=== PATIENT | female | born 1960 | race Caucasian/White ===

== ENCOUNTER 2016-12-26 22:35 | Emergency (ER) | payer OTHER ==
[~2016-12-26] VITALS: Ht 170.2 cm; Wt 78.0 kg
[2016-12-26 22:35] VITALS: Ht 170.2 cm; Wt 78.0 kg
[~2016-12-26 22:35] MED LIST: ALPR2TAB2; AMPH30TA3 PO; CLIN-89 PO
--- OUTSIDE RECORDS SUMMARY | 2016-12-26 22:39 | XMS REPORT | Continuity of Care Document ---
Author Author [facility] Organization [facility] Address Unknown Phone Unavailable Allergies Active Description Code Type Severity Reaction Onset Reported/Identified Relationship to Patient Clinical Status Yes No Known Allergies No Known Allergies Drug Allergy Unknown N/A 08/12/2014 Medications Problems Procedures Results Encounters ACCT No. Visit Date/Time Discharge Status Pt. Type Provider Facility Loc./Unit Complaint [id number] 08/12/2014 03:23:00 2013 04:41:00 DIS Emergency Lissy JONES, Juliocesar Vang [facility].EDS
--- OUTSIDE RECORDS SUMMARY | 2016-12-26 22:39 | XMS REPORT | Continuity of Care Document ---
Author Author [facility] Organization [facility] Address Unknown Phone Unavailable Support Name Relationship Address Phone DECEMBER, IKER Quinn DO Caregiver [address] [place] [address] [place] [address] Unavailable RIDDHI WILSON Next Of Kin [address] [place] [address] Insurance Providers Guarantor Tiffanie Hidalgo Address [address] [place] [address] Email [email or web address] Payer Self Pay Subscriber's Name Tiffanie Hidalgo Alex Relationship 18 Self Advance Directives Directive Response Recorded Date/Time Advanced Directives Type None 06/20/16 3:55am Chief Complaint and Reason for Visit Chief Complaint Skin Rash/Abscess Reason for Visit Carbuncle of left axilla Problems Active Problems Medical Problem Onset Date Status Fracture of lumbar spine Unknown Acute Fracture of lumbar spine Unknown Acute Past Problems Medical Problem Onset Date Carbuncle of left axilla Unknown Medications Current Home Medications Medication Dose Units Route Directions Days Qty Instructions Start Date Alprazolam (Xanax) 2 Mg Tablet Unknown Dose As Needed Clindamycin Hcl 150 Mg Capsule 1 Cap Oral Three Times A Day 10 Days 30 Capsule TAKE WITH A FULL GLASS OF WATER TO AVOID ESOPHAGEAL IRRITATION. Dextroamphetamine/Amphetamine (Adderall 30 Mg Tablet) 30 Mg Tablet 1 Tab Oral Daily 06/20/16 Social History Social History Problem Response Recorded Date/Time Onset Date Status Hx Substance Use No 06/20/2016 4:00am Not Applicable Not Applicable Hx Alcohol Use No 06/20/2016 4:00am Not Applicable Not Applicable Query Response Start Date Stop Date Smoking Status Current every day smoker Hospital Discharge Instructions No hospital discharge instructions. Plan of Care Discharge Date 06/20/16 4:30am Disposition 01 DISCHARGED HOME, SELF-CARE Condition at Discharge Stable Instructions/Education Provided Boil Prescriptions See Medication Section Referrals Your Physician Note: Care Plan and Goals Physician Care Plan Problem: Carbuncle Goal: Follow up with primary care provider Instructions: Take medications and follow care plan as discussed/written Functional Status No functional status results. Allergies, Adverse Reactions, Alerts Allergen Type Severity Reaction Status Last Updated No Known Drug Allergies Allergy Unknown Active 10/10/08 Immunizations Query Response on File Recorded Date/Time Hx Influenza Vaccination No 12/07/14 12:30pm Hx Tetanus, Diptheria, Pertussis UNKNOWN BY PT 12/07/14 12:30pm Hx Influenza Vaccination No 12/07/14 12:30pm Hx Tetanus, Diptheria, Pertussis UNKNOWN BY PT 12/07/14 12:30pm Vital Signs Acute Vital Signs Vital Response Date/Time Temperature (Fahrenheit) 98.2 deg F (96.8 - 99.1) 06/20/2016 4:30am Temperature (Calculated Celsius) 36.23738 degrees C (36.0 - 37.3) 06/20/2016 4:30am Pulse Rate (adult) 91 bpm (60 - 100) 06/20/2016 4:30am Respiratory Rate 16 breaths/min (10 - 20) 06/20/2016 4:30am O2 Sat by Pulse Oximetry 99 % (90 - 100) 06/20/2016 4:30am Blood Pressure 151/85 mm Hg 06/20/2016 4:30am Height (Feet) 5 feet 06/20/2016 3:55am Height (Inches) 9.00 inches 06/20/2016 3:55am Weight (Kilograms) 76.000 kg 06/20/2016 3:55am Body Mass Index (BMI) 24.0 06/20/2016 3:55am Results No known relevant diagnostic tests, laboratory data and/or discharge summary. Procedures No known history of procedures. Encounters Encounter Location Arrival/Admit Date Discharge/Depart Date Attending Provider Departed Emergency Room [facility] 06/20/16 3:40am 06/20/16 4: 30am IKER LOPEZ DO Recent Diagnosis
--- NOTE | 2016-12-26 22:54 | ERPDOC ---
Departure Disposition Decision Date: December 27, 2016 Disposition Decision Time: 00:43 Disposition: 01 DISCHARGED HOME, SELF-CARE Impression Impression Impression: Primary Impression: Anxiety Severity: Moderate Condition: Improved Seen By: Physician only Patient Instructions: Anxiety (ED) Problems/Meds/Labs Reviewed?: Yes Medications reviewed and manag: Yes Additional Instructions: Please follow up with your primary care provider. Follow up care ordered?: Yes Mental Status: Alert, Oriented HPI - Chest Pain General Stated Complaint: ANXIETY,CP Time Seen by Provider: 22:48 HPI - Chest Pain Initial Comments 56-year-old female presents with chest pain. Patient was arrested in a [employer] service [employer]. She was being taken to nursing home and complained of chest pain. She is brought here for evaluation. She does have a history of anxiety. 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 She normally injects methamphetamine, does not smoke. She states she injects into her leg just behind her knee. Her son had a history of Brugada's syndrome. She states she has a sharp pain in her chest and has been becoming increasingly short of breath over the past several months. She is worried she might have lung cancer. Aspirin Treatment Today: 81 mg x 4 Allergies: Coded Allergies: No Known Drug Allergies (Unverified Allergy, Unknown, 12/27/16) Past History Past Medical History Psychological: anxiety, drug abuse Surgical History Reproductive/: D&C, other Family History Family PMH: FOUND: other Family History Comments Brugada syndrome in son Vaccines Hx Influenza Vaccination: No Review of Systems Constitutional Constitutional: see HPI Cardiovascular Rhythm/Rate: see HPI Pulmonary Respiratory: see HPI Psychiatric Psychiatric: see HPI Physical Exam General General Nourishment: well nourished, well developed, appears stated age, no acute distress Vitals and Pain First Documented Vital Signs Date Time Temp Pulse Resp B/P Pulse Ox O2 Delivery O2 Flow Rate FiO2 12/26/16 22:35 98.1 97 20 169/79 99 Room Air Weight: Kilograms: Height (feet): 5 Height (inches): 9.00 Triage Pain Scale: Normal Exams: Head: Normocephalic w/o trauma Chest/Resp: Clear all cardona, with good airflow, and symmetry bilaterally CV: Regular rate and rhythm, without murmur or gallop, Pulses 2+ all extremities, capillary refill, <2 seconds all ext., no pedal edema noted Abdomen: Bowel sounds positive, soft, non-tender, non-distended, no hepatosplenomegaly, masses or bruits noted Neurologic: Patient is alert, and oriented, cranial nerves, motor/sensory/ cerebellar, exams w/o gross deficits, to observation Psychiatric: Patient exhibits, appropriate attention, emotion and affect Integumentary (brief) Comments Patient has dark veins and leg with injection lamb behind left knee. Differential Diagnoses Considering: Anxiety/Panic, Angina, Costochondritis, Hyperventilation, Pericarditis, Pneumonia, Pulmonary Edema Progress Results/Orders Orders Procedure Category Date Status Time Cbc W/Auto LAB 12/26/16 Complete Diff-Reflex Manual 22:58 Cmp - Comprehensive LAB 12/26/16 Complete Metabolic 22:58 Bmp - Basic Metabolic LAB 12/26/16 Complete Panel 22:58 Probnp LAB 12/26/16 Complete 22:58 Troponin I W LAB 12/26/16 Complete Hemolysis Index 22:58 INR LAB 12/26/16 Complete 22:58 Ua, Dip Wreflex LAB 12/26/16 Logged [employer] 22:58 EKG EKG 12/26/16 Logged 22:58 Chest, Pa & Lateral RAD 12/26/16 Taken 22:58 Iv Lock (Ed Only) EDM 12/26/16 Transmitted 22:58 Normal Saline (Normal PHA 12/26/16 Complete Saline Iv) 22:58 Aspirin (Asa) PHA 12/26/16 Complete 23:00 Nitroglycerin PHA 12/26/16 In Process (Nitrostat) 23:00 Hydroxyzine (Atarax) PHA 12/27/16 Complete 00:15 Lab Results Laboratory Tests Test 12/27/16 00:02 White Blood Count 8.7T/MM3 Red Blood Count 4.81M/MM3 Hemoglobin 14.4GM/DL Hematocrit 43.3% Mean Corpuscular Volume 90.0UM3 Mean Corpuscular Hemoglobin 29.9UUG Mean Corpuscular Hemoglobin Concent 33.3GM/DL RDW Standard Deviation 44.0FL Platelet Count 256T/MM3 Mean Platelet Volume 9.3UM3 Immature Granulocyte % (Auto) 0.1% Neutrophils (%) (Auto) 64.1% Lymphocytes (%) (Auto) 25.4% Monocytes (%) (Auto) 8.5% Eosinophils (%) (Auto) 1.3% Basophils (%) (Auto) 0.6% Absolute Immature Granulocyte (auto 0.01T/MM3 Absolute Neutrophils (auto) 5.6T/MM3 Absolute Lymphocytes (auto) 2.2T/MM3 Absolute Monocytes (auto) 0.7T/MM3 Absolute Eosinophils (auto) 0.1T/MM3 Absolute Basophils (auto) 0.1T/MM3 Prothromb Time International Ratio 1.09 Turbidity < 20 Sodium Level 145MEQ/L Potassium Level 4.8MEQ/L Chloride Level 107MEQ/L Carbon Dioxide Level 26MEQ/L Anion Gap 12MEQ/L Blood Urea Nitrogen 15.0MG/DL Creatinine 0.7MG/DL Glomerular Filtration Rate Calc 87 BUN/Creatinine Ratio 21RATIO Glucose Level 124MG/DL Calculated Osmolality 281MOSM/KG Calcium Level 9.3MG/DL Total Bilirubin 0.60MG/DL Icterus Index < 2 Aspartate Amino Transf (AST/SGOT) 34U/L Alanine Aminotransferase (ALT/SGPT) 39U/L Alkaline Phosphatase 50U/L Troponin I 0.016ng/ml OM-Adb-Y-Type Natriuretic Peptide 56PG/ML Total Protein 7.0G/DL Albumin 4.2G/DL Globulin 2.8G/DL Albumin/Globulin Ratio 1.5RATIO Chemistry Specimen Hemolysis 163 Medications Current ED Medications Sodium Chloride (Normal Saline IV) 1,000 ml @ 1,000 mls/hr Q1H ONCE IV ; Start 12/26/16 at 22:58; Stop 12/26/16 at 23:57; Status DC Aspirin (ASA) 324 mg O ONCE PO ; Start 12/26/16 at 23:00; Stop 12/26/16 at 23:01 ; Status DC Nitroglycerin (Nitrostat) 0.4 mg Q5MIN PRN SL CHEST PAIN; Start 12/26/16 at 23: 00 Hydroxyzine HCl (Atarax) 10 mg O ONCE PO Last administered on 12/27/16t 00:37; Start 12/27/16 at 00:15; Stop 12/27/16 at 00:16; Status DC Progress Progress Labs returned negative, chest x-ray is negative. Patient was given hydroxyzine for anxiety. Recommend that she follow-up with her primary care provider and have a long talk about lifestyle choices. She states she wants to change from using meth and smoking, if she is able to do this, she'll require support. At this time she does check out negative for immediate causes of chest pain. WILBER YUNG MD December 26, 2016 22:54
[2016-12-26] MEDS ORDERED: NORMAL SALINE 1,000 ML IV ONE (22:58)
[2016-12-26] MEDS ORDERED: ASPIRIN 81 MG CHEWABLE TABLET PO ONE (23:00)
[2016-12-26] MEDS ORDERED: NITROGLYCERIN 0.4 MG SUBLINGUAL TABLET SL PRN (23:00)
--- NOTE | 2016-12-26 23:45 | NUR ---
MED PER DR YUNG, ASA ORDER WILL BE CANCELLED.
--- NOTE | 2016-12-26 23:50 | NUR ---
MED PT REQUESTS XANAX AT THIS TIME FOR HER ANXIETY. PROVIDER IS NOTIFIED AND WILL ENTER ORDER FOR HYDROXIZINE.
--- NOTE | 2016-12-27 00:08 | NUR ---
XR PT LEAVES WITH IMAGING STAFF AT THIS TIME.
[2016-12-27 00:09] LABS: BASOPHILS # (AUTO) 0.1 T/MM3 (0-0.2); BASOPHILS % (AUTO) 0.6 % (0-2); EOSINOPHILS # (AUTO) 0.1 T/MM3 (0-0.5); EOSINOPHILS % (AUTO) 1.3 % (0-4); HCT - HEMATOCRIT 43.3 % (36-46); HGB - HEMOGLOBIN 14.4 GM/DL (12-16); IMMATURE GRANULOCYTE # (AUTO) 0.01 T/MM3 (0.00-0.03); IMMATURE GRANULOCYTE % (AUTO) 0.1 % (0.0-0.5); LYMPHOCYTES # (AUTO) 2.2 T/MM3 (1-4.8); LYMPHOCYTES % (AUTO) 25.4 % (23-45); MEAN CORPUSCULAR HGB 29.9 UUG (26-34); MEAN CORPUSCULAR HGB CONC(MCHC 33.3 GM/DL (31-37); MEAN PLATELET VOLUME 9.3 UM3 (9.4-12.4); MONOCYTES # (AUTO) 0.7 T/MM3 (0-0.8); MONOCYTES % (AUTO) 8.5 % (0-9.0); NEUTROPHILS #(AUTO)-ABSOLUTE 5.6 T/MM3 (1.8-7.7); NEUTROPHILS % (AUTO) 64.1 % (33-66); RED BLOOD COUNT 4.81 M/MM3 (4.00-5.20); WBC - WHITE BLOOD COUNT 8.7 T/MM3 (4.5-11.0)
[2016-12-27 00:16] LABS: INR 1.09 (0.76-1.04); PROTHROMBIN TIME 11.9 SEC (9.31-12.49)
--- NOTE | 2016-12-27 00:18 | NUR ---
RETURN PT RETURNS TO ROOM AT THIS TIME.
[2016-12-27 00:20] LABS: ALBUMIN 4.2 G/DL (3.5-5.0); ALBUMIN/GLOBULIN RATIO 1.5 RATIO (1.1-2.2); ALKALINE PHOSPHATASE 50 U/L (38-126); ALT (SGPT) 39 U/L (9-52); ANION GAP 12 MEQ/L (5-15); AST (SGOT) 34 U/L (14-36); BUN/CREATININE RATIO 21 RATIO (6-26); CALCIUM 9.3 MG/DL (8.4-10.2); CHLORIDE 107 MEQ/L (98-107); CO2 - CARBON DIOXIDE 26 MEQ/L (22-30); CREATININE 0.7 MG/DL (0.7-1.2); GLOMERULAR FILTRATION RATE 87; GLUCOSE 124 MG/DL (65-110); POTASSIUM 4.8 MEQ/L (3.6-5); SODIUM 145 MEQ/L (134-144)
[2016-12-27 00:29] LABS: PROBNP 56 PG/ML (0-175)
--- OUTSIDE RECORDS SUMMARY | 2016-12-27 00:42 | XMS REPORT | Continuity of Care Document ---
Author Author [facility] Organization [facility] Address Unknown Phone Unavailable Allergies Active Description Code Type Severity Reaction Onset Reported/Identified Relationship to Patient Clinical Status Yes No Known Allergies No Known Allergies Drug Allergy Unknown N/A 08/12/2014 Medications Problems Procedures Results Encounters ACCT No. Visit Date/Time Discharge Status Pt. Type Provider Facility Loc./Unit Complaint [id number] 08/12/2014 03:23:00 2013 04:41:00 DIS Emergency Lissy JONES, Juliocesar Vang [facility] W.EDS
--- NOTE | 2016-12-27 01:10 | NUR ---
BR PT AMBULATES TO BR AND VOIDS, URINE SAMPLE IS COLLECTED FOR LAB TESTING.
[2016-12-27 01:18] VITALS: BP 142/70; PULSE 92; RESP 23; TEMP 98.1; O2SAT 100
--- NOTE | 2016-12-27 01:18 | NUR ---
DEPART PT IS DISCHARGED AT THIS TIME, INSTRUCTIONS ARE REVIEWED AND UNDERSTANDING IS VOICED. PT LEAVES AMBULATORY IN CUSTODY OF [employer] OFF[employer].
[2016-12-27 01:25] LABS: BLOOD, URINE TRACE-LYSED (NEGATIVE); COLOR,URINE YELLOW (YELLOW); LEUKOCYTE ESTERASE ,URINE NEGATIVE (NEGATIVE); NITRITE,URINE NEGATIVE (NEGATIVE); UROBILINOGEN,URINE 0.2 EU/DL (NORMAL)
--- NOTE | 2016-12-27 08:08 | DI ---
LOCATION OF DICTATION: [place] EXAM: CHEST, PA LATERAL HISTORY: ITS.REASON: chest pain COMPARISON: December 07, 2014 FINDINGS: The heart size is normal. The mediastinal configuration is unremarkable. There are no consolidating opacities or pleural effusions. There is no evidence for a pneumothorax. The osseous structures are within normal limits. IMPRESSION: No acute cardiopulmonary abnormality is identified. .
== END 2016-12-27 01:18 | disposition home or self-care (01) ==
LOC: ED 22:35
DX: F41.9 Anxiety disorder, unspecified (principal); R07.9 Chest pain, unspecified
CPT/HCPCS: 71020; 80053; 81003; 83880; 84484; 85025; 85610; 93005; 96360; 99284; J7030